=== PATIENT | female | born 1940 | race Caucasian/White ===

== ENCOUNTER 2019-02-12 13:53 | Emergency (ER) | payer OTHER, MEDICARE ==
--- OUTSIDE RECORDS SUMMARY | 2019-02-12 13:55 | XMS REPORT | Clinical Summary ---
:1940 Author Organization [facility] Address [address] [place] [address] Care Team Providers Name Role Phone Asked, No Pcp Primary Care Provider Unavailable Allergies Active Allergy Reactions Severity Noted Date Comments No Known Drug Allergies 05/28/2016 Medications Medication Sig Dispensed Refills Start Date End Date Status donepezil (ARICEPT) 10 MG tablet 0 05/26/2016 Active DULoxetine (CYMBALTA) 20 MG capsule 0 03/20/2016 Active famotidine (PEPCID) 40 MG tablet 0 06/08/2016 Active ipratropium (ATROVENT) 0.06 % nasal 0 05/25/2016 Active spray levETIRAcetam (KEPPRA) 500 MG tablet 0 05/21/2016 Active NAMENDA XR 14 mg capsule,sprinkle,ER 0 03/20/2016 Active 24hr BYSTOLIC 5 mg tablet 0 06/08/2016 Active VESICARE 5 mg tablet 0 06/12/2016 Active warfarin (COUMADIN) 5 MG tablet 0 06/12/2016 Active Active Problems Not on file Family History Medical History Relation Name Comments Other Father Malignant tumor of lung Other Mother Malignant tumor of kidney Relation Name Status Comments Father (Age 72) Mother (Age 68) Social History Tobacco Use Types Packs/Day Years Used Date Never Smoker Alcohol Use Drinks/Week oz/Week Comments No Sex Assigned at Date Recorded Not on file Job Start Date Occupation Industry Not on file Not on file Not on file Travel History Travel Start Travel End No recent travel history available. Last Filed Vital Signs Not on file Plan of Treatment Health Maintenance Due Date Last Done Comments SHINGLES VACCINES (#1) 1988 65+ PNEUMOCOCCAL VACCINE (1 of 2 - PCV13) 2003 PNEUMOCOCCAL POLYSACCHARIDE VACCINE AGE 65 AND OVER 2003 INFLUENZA VACCINE 06/08/2019 Results Not on fileafter 02/11/2018 Insurance Payer Benefit Plan / Group Subscriber ID Type Phone Address MEDICARE MEDICARE PART A AND B xxxxxxxxxx Medicare [place], [place] Advance Directives Patient has advance care planning documents on file. For more information, please contact:[place] [address]
[2019-02-12] MEDS ORDERED: LIDOCAINE 1% MPF 30 ML VIAL ONE (14:59)
[2019-02-12] MEDS ORDERED: HYDROCODONE/APAP 5/325 MG TAB ONE (15:41)
[2019-02-12] MEDS ORDERED: AMOX/K CLAV 875 MG TAB ONE (15:42)
--- NOTE | 2019-02-12 16:18 | RAD REPORT ---
EXAM DESCRIPTION: RAD - Knee Right 3 View - 02/12/2019 4:12 pm CLINICAL HISTORY: PAIN COMPARISON: No comparisons FINDINGS: No fracture or dislocation seen. Mild medial compartment space narrowing is evident. No si gnificant joint effusion seen.
--- NOTE | 2019-02-12 16:23 | RAD REPORT ---
EXAM DESCRIPTION: CT - CTFB CLINICAL HISTORY: Facial pain;Deformity Trauma, pain COMPARISON: No comparisons TECHNIQUE: Axial 2 mm thick images of the face were obtained with sagittal and coronal reconstructio n images. All CT scans are performed using dose optimization technique as appropriate and may include automated exposure control or mA/KV adjustment according to patient size. FINDINGS: Subtle nasal bone deformity is seen with adjacent soft tissue swelling, suspicious for non displaced nasal bone fracture.No additional facial bone fracture is seen.The mandible is intact. Smal l right frontal scalp hematoma. Focal small hematoma seen in the right zygoma region. The globes and orbital contents are grossly unremarkable.The paranasal sinuses and mastoids are clear . IMPRESSION: Mild nasal bone fracture.
--- NOTE | 2019-02-12 16:30 | RAD REPORT ---
EXAM DESCRIPTION: CT - CTHCSPWOC - 02/12/2019 4:03 pm CLINICAL HISTORY: Trauma, head and neck injury. PAIN COMPARISON: No comparisons TECHNIQUE: Axial 5 mm thick images of the head were obtained. Axial 2 mm thick images of the cervical spine were obtained with sagittal and coronal reconstruction images generated and reviewed. All CT scans are performed using dose optimization technique as appropriate and may include automated exposure control or mA/KV adjustment according to patient size. FINDINGS: CT HEAD WITHOUT CONTRAST: No acute hemorrhage, hydrocephalus or extra-axial collection is identified.Mild generalized brain atr ophy is present with mild periventricular and deep white matter chronic microvascular ischemic change s.No areas of brain edema or midline shift. The paranasal sinuses and mastoids are clear.The calvarium is intact. CT CERVICAL SPINE WITHOUT CONTRAST: No fracture or subluxation.Moderate lower cervical degenerative changes are present. 2-3 mm anterolis thesis C4 on 5.No prevertebral soft tissues swelling is identified. IMPRESSION: No acute intracranial or cervical spine findings. Moderate lower cervical degenerative changes.
--- NOTE | 2019-02-12 16:39 | EDPHYS ---
Physician Documentation [facility] Name: Radha Lugo Age: 78 yrs Sex: Female : 1940 Arrival Date: 02/12/2019 Time: 13:53 Bed 5 Private MD: ED Physician Jay Sewell HPI: 02/12 14:50 This 78 yrs old Female presents to ER via Wheelchair with complaints of Fall lisa Injury. 14:50 Details of fall: The patient fell from an upright position, while walking. Onset: The lisa symptoms/episode began/occurred just prior to arrival. Associated injuries: The patient sustained injury to the head, neck injury, face. Severity of symptoms: At their worst the symptoms were mild, moderate, in the emergency department the symptoms are unchanged. 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 - Social history:: Smoking status: Patient/guardian denies using tobacco. - Immunization history: Last tetanus immunization: - up to date. - Ebola Screening: : No symptoms or risks identified at this time. ROS: 14:50 Constitutional: Negative for fever, chills, and weight loss, Eyes: Negative for injury, lisa pain, redness, and discharge, Neck: Negative for injury, pain, and swelling, Cardiovascular: Negative for chest pain, palpitations, and edema, Respiratory: Negative for shortness of breath, cough, wheezing, and pleuritic chest pain, Abdomen/GI: Negative for abdominal pain, nausea, vomiting, diarrhea, and constipation, Back: Negative for injury and pain, : Negative for injury, bleeding, discharge, and swelling, Skin: Negative for injury, rash, and discoloration, Neuro: Negative for headache, weakness, numbness, tingling, and seizure, Psych: Negative for depression, anxiety, suicide ideation, homicidal ideation, and hallucinations, Allergy/Immunology: Negative for hives, rash, and allergies, Endocrine: Negative for neck swelling, polydipsia, polyuria, polyphagia, and marked weight changes, Hematologic/Lymphatic: Negative for swollen nodes, abnormal bleeding, and unusual bruising. 14:50 ENT: Positive for nasal discharge, nose bleed. 14:50 MS/extremity: Positive for decreased range of motion, pain, tenderness, of the right hand and left hand. Exam: 14:50 Constitutional: This is a well developed, well nourished patient who is awake, alert, lisa and in no acute distress. Eyes: Pupils equal round and reactive to light, extra-ocular motions intact. Lids and lashes normal. Conjunctiva and sclera are non-icteric and not injected. Cornea within normal limits. Periorbital areas with no swelling, redness, or edema. Neck: Trachea midline, no thyromegaly or masses palpated, and no cervical lymphadenopathy. Supple, full range of motion without nuchal rigidity, or vertebral point tenderness. No Meningismus. Chest/axilla: Normal chest wall appearance and motion. Nontender with no deformity. No lesions are appreciated. Cardiovascular: Regular rate and rhythm with a normal S1 and S2. No gallops, murmurs, or rubs. Normal PMI, no JVD. No pulse deficits. Respiratory: Lungs have equal breath sounds bilaterally, clear to auscultation and percussion. No rales, rhonchi or wheezes noted. No increased work of breathing, no retractions or nasal flaring. Abdomen/GI: Soft, non-tender, with normal bowel sounds. No distension or tympany. No guarding or rebound. No evidence of tenderness throughout. Back: No spinal tenderness. No costovertebral tenderness. Full range of motion. Neuro: Awake and alert, GCS 15, oriented to person, place, time, and situation. Cranial nerves II-XII grossly intact. Motor strength 5/5 in all extremities. Sensory grossly intact. Cerebellar exam normal. Normal gait. Psych: Awake, alert, with orientation to person, place and time. Behavior, mood, and affect are within normal limits. 14:50 Head/face: Noted is contusion, deformity, erythema, swelling, tenderness, that is mild, of the top of head, right eye, nose and left eye. 14:50 Musculoskeletal/extremity: ROM: no acute changes, intact in all extremities, Circulation is intact in all extremities. Pulses: Sensation intact. Compartment Syndrome exam of affected extremity: is normal. DVT Exam: no swelling, negative Homans' sign noted on exam, no appreciated bluish discoloration, no erythema, no increased warmth, pain, tenderness. Vital Signs: 14:03 BP 144 / 69; Pulse 57; Resp 16; Temp 98.3; Pulse Ox 98% on R/A; Weight 63.5 kg; Height la1 5 ft. 7 in. (170.18 cm); Pain 0/10; 15:30 BP 142 / 60; Pulse 62; Resp 16; Temp 98.3; Pulse Ox 97% on R/A; sg 16:30 BP 155 / 82; Pulse 66; Resp 16; Temp 98.3; Pulse Ox 99% on R/A; sg 14:03 Body Mass Index 21.93 (63.50 kg, 170.18 cm) la1 Jessie Coma Score: 14:15 Eye Response: spontaneous(4). Verbal Response: oriented(5). Motor Response: obeys sg commands(6). Total: 15. 15:30 Eye Response: spontaneous(4). Verbal Response: oriented(5). Motor Response: obeys sg commands(6). Total: 15. Trauma Score (Adult): 14:15 Eye Response: spontaneous(1); Verbal Response: oriented(1); Motor Response: obeys sg commands(2); Systolic BP: > 89 mm Hg(4); Respiratory Rate: 10 to 29 per min(4); Jessie Score: 15; Trauma Score: 12 15:30 Eye Response: spontaneous(1); Verbal Response: oriented(1); Motor Response: obeys sg commands(2); Systolic BP: > 89 mm Hg(4); Respiratory Rate: 10 to 29 per min(4); [place] Score: 15; Trauma Score: 12 Laceration: 14:50 Wound Repair of 1.5cm ( 0.6in ) subcutaneous laceration to nose and mouth. Irregularly lisa shaped.. Skin/tissue flap noted.. Distal neuro/vascular/tendon intact. Anesthesia: Local anesthetic administered with 5 mls of 1% lidocaine, Local anesthetic administered with 5 mls of 1% lidocaine, Local anesthetic administered with 5 mls of 1% lidocaine. Wound prep: Simple cleansing with betadine by in. Skin closed with 3 5-0 Prolene using interrupted sutures and sterile technique. Dressed with Neosporin. Patient tolerated well. MDM: 14:15 Patient medically screened. [facility] 14:50 Data reviewed: vital signs, nurses notes, radiologic studies, CT scan, plain films. [facility] 02/12 14:50 Order name: CT Head C Spine; Complete Time: 16:35 [facility] 02/12 14:50 Order name: CT Facial Bones W/O Con; Complete Time: 16:35 [facility] 02/12 14:54 Order name: Knee Right 3 View XRAY; Complete Time: 16:35 [facility] 02/12 14:50 Order name: Chromic, Sutures; Complete Time: 15:09 [facility] 02/12 14:50 Order name: Prolene, Sutures; Complete Time: 15:09 [facility] 02/12 14:50 Order name: Dressing - Wound; Complete Time: 15:09 [facility] 02/12 14:50 Order name: Gloves, Sterile; Complete Time: 15:09 [facility] 02/12 14:50 Order name: Setup Suture Tray; Complete Time: 15:09 [facility] 02/12 14:55 Order name: Ice pack; Complete Time: 15:06 [facility] Administered Medications: 15:07 Drug: Lidocaine-Epinephrine -1%: (1:100,000) 5 ml {Note: medication administered by .} Volume: 20 ml; Route: Infiltration; 16:30 Drug: Augmentin 875 mg Route: PO; 16:30 Drug: [place] 5 mg-325 mg 1 tabs Route: PO; Disposition: 02/12/19 16:38 Discharged to Home. Impression: Fall due to bumping against object, Fracture of nasal bones, Laceration without foreign body of unspecified part of head - upper lip, through - through, Fracture of tooth (traumatic) - incomplete. - Condition is Stable. - Discharge Instructions: Laceration Care, Adult, Mouth Laceration, Facial Laceration, Laceration Care, Adult, [id number], Facial Laceration, [id number]. - Prescriptions for Augmentin 875- 125 mg Oral Tablet - take 1 tablet by ORAL route every 12 hours for 7 days; 14 tablet. Tylenol- Codeine #3 300-30 mg Oral Tablet - take 1 tablet by ORAL route every 4 hours As needed; 26 tablet. - Medication Reconciliation Form, Thank You Letter, Antibiotic Education, Prescription Opioid Use form. - Follow up: Private Physician; When: 2 - 3 days; Reason: Recheck today's complaints, Continuance of care, Re-evaluation by your physician. Follow up: Monse Giordano; When: 2 - 3 days; Reason: Recheck today's complaints, Re-evaluation by your physician. Follow up: Alfredo Zapien; When: 1 - 2 days; Reason: Recheck today's complaints, Re-evaluation by your physician. - Problem is new. - Symptoms have improved. Signatures: Dispatcher [employer] EDEfrain Perkins RN RN sg Anderson, Corey, MD MD cha Williams, Irene, RN RN iw Attema, Lee, RN RN la1 Corrections: (The following items were deleted from the chart) 14:11 13:59 PMHx: Seizures; la1 la1 17:01 16:38 02/12/2019 16:38 Discharged to Home. Impression: Fall due to bumping against iw object; Fracture of nasal bones; Laceration without foreign body of unspecified part of head - upper lip, through - through; Fracture of tooth (traumatic) - incomplete. Condition is Stable. Discharge Instructions: Laceration Care, Adult, Mouth Laceration, Facial Laceration, Laceration Care, Adult, [id number], Facial Laceration, [id number]. Prescriptions for Augmentin 875-125 mg Oral Tablet - take 1 tablet by ORAL route every 12 hours for 7 days; 14 tablet, Tylenol-Codeine #3 300-30 mg Oral Tablet - take 1 tablet by ORAL route every 4 hours As needed; 26 tablet. and Forms are Medication Reconciliation Form, Thank You Letter, Antibiotic Education, Prescription Opioid Use. Follow up: Private Physician; When: 2 - 3 days; Reason: Recheck today's complaints, Continuance of care, Re-evaluation by your physician. Follow up: Monse Giordano; When: 2 - 3 days; Reason: Recheck today's complaints, Re-evaluation by your physician. Follow up: Alfredo Zapien; When: 1 - 2 days; Reason: Recheck today's complaints, Re-evaluation by your physician. Problem is new. Symptoms have improved. lisa
--- NOTE | 2019-02-12 16:39 | ER ---
Nurse's Notes [facility] Name: Radha Lugo Age: 78 yrs Sex: Female : 1940 Arrival Date: 02/12/2019 Time: 13:53 Bed 5 Private MD: Diagnosis: Fall due to bumping against object;Fracture of nasal bones;Laceration without foreign body of unspecified part of head-upper lip, through - through;Fracture of tooth (traumatic)-incomplete Presentation: 02/12 13:59 Presenting complaint: Patient states: I tripped from from standing between to vehicles la1 and hit my nose and upper lip somewhere on the way down, pt denies LOC but was sitting on the ground for 30-45 minutes after the fall which was unwitnessed, pt does take on baby aspirin per day. Transition of care: patient was not received from another setting of care. Onset of symptoms was February 12, 2019. Risk Assessment: Do you want to hurt yourself or someone else? Patient reports no desire to harm self or others. Initial Sepsis Screen: Does the patient meet any 2 criteria? No. Patient's initial sepsis screen is negative. Does the patient have a suspected source of infection? No. Patient's initial sepsis screen is negative. Care prior to arrival: None. 13:59 Method Of Arrival: Wheelchair la1 13:59 Acuity: GRACIE 3 la1 13:59 Mechanism of Injury: Fall from standing position. Trauma event details: Injury occurred la1 in the [facility]. Triage Assessment: 14:20 General: Appears in no apparent distress. well groomed, well developed, well nourished, sg Behavior is calm, cooperative, appropriate for age. Pain: Complains of pain in upper lip and nose. 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 - Social history:: Smoking status: Patient/guardian denies using tobacco. - Immunization history: Last tetanus immunization: - up to date. - Ebola Screening: : No symptoms or risks identified at this time. Screenin:42 Abuse screen: Denies threats or abuse. Denies injuries from another. Nutritional sg screening: No deficits noted. Tuberculosis screening: No symptoms or risk factors identified. Never had TB. Fall Risk Fall in past 12 months (25 points). Secondary diagnosis (15 points) seizures, dementia, No IV (0 pts). Ambulatory Aid- None/Bed Rest/Nurse Assist (0 pts). Gait- Normal/Bed Rest/Wheelchair (0 pts) Mental Status- Oriented to own ability (0 pts). Total Luevano Fall Scale indicates Low Risk Score (25-44 pts). Fall prevention measures have been instituted. Side Rails Up X 2 Family Present and informed to notify staff if they need to leave bedside As available Patient and Family Educated on Fall Prevention Program and strategies. Primary Survey: 14:10 NO uncontrolled hemorrhage observed. A: The patient is alert. Airway: patent, No sg supplemental oxygen in use on arrival. Oral cavity: blood present, Trauma to teeth noted: upper right lateral incisor (#7) and upper right central Incisor (#8). Breathing/Chest: Respiratory pattern: regular, Respiratory effort: spontaneous, unlabored, Breath sounds: clear, bilaterally. Chest inspection: symmetrical rise and fall of the chest. Circulation: Cardiac rhythm: sinus rhythm Heart tones present. Pulses: palpable right radial artery and left radial artery. Skin color: pale, Skin temperature: warm. Disability Alert. Exposure/Environment: All clothing and personal items were removed. Forensic evidence collection is not deemed to be indicated at this time. Items placed in patient belonging bag. There is no evidence of uncontrolled external bleeding. Obvious injury(ies) are noted at this time: dental fracture noted to upper teeth A warming method has been applied: A warm blanket has been provided to the patient. 14:15 Reassessment Airway Airway Oxygen Non-rebreather Oral cavity Teeth trauma noted Other sg bleeding noted to inside of mouth Breathing/Chest Respiratory pattern Regular Respiratory effort Spontaneous Breath sounds Clear Chest inspection Symmetrical Circulation Heart tones Present Pulses Palpable Color Pale Temperature Warm Disability Alert. Assessment: 14:15 General: Appears in no apparent distress. uncomfortable, slender, well groomed, well sg developed, well nourished, Behavior is calm, cooperative, appropriate for age. Pain: Complains of pain in nose, upper raffy border and upper lip Quality of pain is described as tender, throbbing. Neuro: Level of Consciousness is awake, alert, obeys commands, Oriented to person, time, situation, Scout are equal bilaterally Moves all extremities. Gait is steady, Speech is normal, Facial symmetry appears normal. Cardiovascular: Capillary refill is brisk in bilateral fingers Patient's skin is warm and dry. Chest pain is denied. Respiratory: Airway is patent Respiratory effort is even, unlabored, Respiratory pattern is regular, symmetrical, Denies cough, shortness of breath labored breathing. GI: No signs and/or symptoms were reported involving the gastrointestinal system. : No signs and/or symptoms were reported regarding the genitourinary system. EENT: Nares with bleeding noted bilaterally Oral mucosa is moist. Derm: Skin is pink, warm \T\ dry. Musculoskeletal: Swelling present in nose, upper raffy border and upper lip. 14:55 Reassessment: Patient appears in no apparent distress at this time. pt family at sg bedside assisting pt by holding icepack provided to forehead, bleeding controlled at this time. 15:30 Reassessment: Patient appears in no apparent distress at this time. Patient and/or sg family updated on plan of care and expected duration. Pain level reassessed. pt family remains at bedside at this time, srx2, bed in low and locked position, awaiting radiology orders, pt and pt family updated on POC, will continue to monitor. 16:31 Reassessment: Patient appears in no apparent distress at this time. Patient and/or iw family updated on plan of care and expected duration. Pain level reassessed. Patient is alert, oriented x 3, equal unlabored respirations, skin warm/dry/pink. steri-strips applied to palms, family at bedside, awaiting radiology results. Vital Signs: 14:03 BP 144 / 69; Pulse 57; Resp 16; Temp 98.3; Pulse Ox 98% on R/A; Weight 63.5 kg; Height la1 5 ft. 7 in. (170.18 cm); Pain 0/10; 15:30 BP 142 / 60; Pulse 62; Resp 16; Temp 98.3; Pulse Ox 97% on R/A; sg 16:30 BP 155 / 82; Pulse 66; Resp 16; Temp 98.3; Pulse Ox 99% on R/A; sg 14:03 Body Mass Index 21.93 (63.50 kg, 170.18 cm) la1 Jessie Coma Score: 14:15 Eye Response: spontaneous(4). Verbal Response: oriented(5). Motor Response: obeys sg commands(6). Total: 15. 15:30 Eye Response: spontaneous(4). Verbal Response: oriented(5). Motor Response: obeys sg commands(6). Total: 15. Trauma Score (Adult): 14:15 Eye Response: spontaneous(1); Verbal Response: oriented(1); Motor Response: obeys sg commands(2); Systolic BP: > 89 mm Hg(4); Respiratory Rate: 10 to 29 per min(4); Jessie Score: 15; Trauma Score: 12 15:30 Eye Response: spontaneous(1); Verbal Response: oriented(1); Motor Response: obeys sg commands(2); Systolic BP: > 89 mm Hg(4); Respiratory Rate: 10 to 29 per min(4); Jessie Score: 15; Trauma Score: 12 ED Course: 13:53 Patient arrived in ED. as 14:01 Triage completed. la1 14:01 Arm band placed on left wrist. la1 14:10 Patient maintains SpO2 saturation greater than 95% on room air. Thermoregulation: warm sg blanket given to patient. 14:15 Jay Sewell MD is Attending Physician. lisa 14:35 Patient has correct armband on for positive identification. Bed in low position. Call sg light in reach. Side rails up X2. Pulse ox on. NIBP on. Warm blanket given. Head of bed elevated. 14:45 Assist provider with laceration repair on upper lip that was 2.5 cm. or less using sg sutures. Set up tray. Performed by Jay Sewell MD. Wound care: to laceration located on upper lip, inside. 14:45 sutures to outter aspect of upper lip and sutures to inside of upper lip by .sg 14:54 Efrain Hackett, RN is Primary Nurse. sg 15:[address] via stretcher. mw3 16:03 CT Head C Spine In Process Unspecified. EDMS 16:13 Knee Right 3 View XRAY In Process Unspecified. EDMS 16:16 CT Facial Bones W/O Con In Process Unspecified. EDMS 16:38 Monse Giordano MD is Referral Physician. [facility] 16:38 Alfredo Zapien DDS is Referral Physician. [facility] 16:52 Patient did not have IV access during this emergency room visit. sg Administered Medications: 15:07 Drug: Lidocaine-Epinephrine -1%: (1:100,000) 5 ml {Note: medication administered by sg .} Volume: 20 ml; Route: Infiltration; 16:30 Drug: Augmentin 875 mg Route: PO; sg 16:30 Drug: Vowinckel 5 mg-325 mg 1 tabs Route: PO; sg Intake: 14:15 PO: 0ml; Total: 0ml. sg Output: 14:15 Urine: 0ml; Total: 0ml. sg Outcome: 16:38 Discharge ordered by . [facility] 16:55 Discharged to home via wheelchair, with family. sg 16:55 Condition: stable 16:55 Discharge instructions given to patient, Instructed on discharge instructions, follow up and referral plans. medication usage, safety practices, wound care, Demonstrated understanding of instructions, follow-up care, medications, wound care, Prescriptions given X 2. 17:00 Patient's length of stay in the Emergency Department was greater than 2 hours. sg 17:01 Patient left the ED. iw Signatures: Dispatcher [employer] EDEfrain Perkins RN RN sg Anderson, Corey, MD MD cha Martinez, Amelia as Val Harvey RN RN Seun Cottrell RN RN [facility] Radha Giordano 3 Vidhi Gale mw3 Corrections: (The following items were deleted from the chart) 14:03 13:59 Acuity: GRACIE 2 la1 la1 14:11 13:59 PMHx: Seizures; la1 la1 18:23 16:30 BP 155 / 82; Pulse 66bpm; Resp 16bpm; Pulse Ox 99% RA; dh3
[2019-02-12 17:43] VITALS: TEMP 98.3
[2019-02-12 17:46] VITALS: BP 155/82; O2SAT 99
== END 2019-02-12 17:01 | disposition home or self-care (01) ==
LOC: ER 13:53
PROC: 0CQ0XZZ Repair Upper Lip, External Approach (ICD-10-PCS; principal; 2019-02-12)
DX: S02.2XXA Fracture of nasal bones, initial encounter for closed fracture (principal); S01.511A Laceration without foreign body of lip, initial encounter; S02.5XXA Fracture of tooth (traumatic), initial encounter for closed fracture; W18.00XA Striking against unspecified object with subsequent fall, initial encounter; Y93.01 Activity, walking, marching and hiking; F03.90 Unspecified dementia, unspecified severity, without behavioral disturbance, psychotic disturbance, mood disturbance, and anxiety; F32.9 Major depressive disorder, single episode, unspecified; G40.909 Epilepsy, unspecified, not intractable, without status epilepticus
CPT/HCPCS: 70450; 70486; 72125; 76377; 99285

== ENCOUNTER 2019-06-17 08:25 | Emergency (ER) | payer OTHER, MEDICARE ==
--- OUTSIDE RECORDS SUMMARY | 2019-06-17 08:27 | XMS REPORT | Clinical Summary ---
:1940 Author Organization [facility] Address [address] [place] [address] Care Team Providers Name Role Phone Asked, [...] VACCINE (1 of 2 - PCV13) 2003 INFLUENZA VACCINE 06/08/2019 Results Not on fileafter 06/16/2018 Insurance Payer Benefit Plan / Subscriber ID Effective Dates Phone Address Type Group MEDICARE MEDICARE PART A xxxxxxxxxx 2003-Present [place], [place] Medicare AND B Advance Directives Patient has advance care planning documents on file. For more information, please contact:Kody Guerrier[address] [place] [address]
[2019-06-17] MEDS ORDERED: NA CHLORIDE 0.9% 1,000 ML ONE (08:55)
[2019-06-17 09:14] LABS: Absolute Lymphocytes (CBC) 0.7 K/uL (0.7-4.9); Basophils % 1.4 % (0-1.3); Hematocrit 40.2 % (36.0-45.0); Lymphocytes % 12.4 % (15.3-44.8); MPV 7.3 fL (7.6-11.3); RBC Red Blood Cell Count 4.21 M/uL (3.86-4.86)
[2019-06-17 09:15] LABS: Protime INR 0.97
[2019-06-17 09:39] LABS: ALT/SGPT 16 U/L (12-78); AST/SGOT 15 U/L (15-37); Albumin 3.5 g/dL (3.4-5.0); Alkaline Phosphatase 99 U/L (45-117); BUN Blood Urea Nitrogen 20 mg/dL (7-18); Bicarbonate 26 mmol/L (21-32); Bilirubin Direct 0.2 mg/dL (0-0.2); Bilirubin Total 0.6 mg/dL (0.2-1.0); Glucose Level 92 mg/dL (74-106); Lipase 97 U/L (73-393); Magnesium 2.1 mg/dL (1.8-2.4); NT PRO-BNP 113 pg/mL (<450); Potassium 4.2 mmol/L (3.5-5.1); Sodium Level 136 mmol/L (136-145); Troponin (Emerg Dept Use Only) < 0.02 ng/mL (0.0-0.045)
[2019-06-17 09:42] LABS: Urine Blood NEGATIVE (NEG); Urine Glucose NEGATIVE (NEG); Urine Protein NEGATIVE (NEG); Urine pH 5.5 (5.0-7.0)
--- NOTE | 2019-06-17 10:15 | RAD REPORT ---
EXAM DESCRIPTION: CT - Chest For Pe Angio - 06/17/2019 10:08 am CLINICAL HISTORY: Chest pain. CHEST PAIN COMPARISON: No comparisons TECHNIQUE: CT angiogram of the pulmonary arteries was performed with MIP. All CT scans are performed using dose optimization technique as appropriate and may include automated exposure control or mA/KV adjustment according to patient size. FINDINGS: No evidence of pulmonary thromboembolism. No acute aortic finding demonstrated. Mild interstitial pulmonary edema is seen. Small left pleural effusion with atelectasis in left lung base. No concerning bony finding. IMPRESSION: No evidence of pulmonary thromboembolism. Mild CHF.
--- NOTE | 2019-06-17 10:50 | ER ---
Nurse's Notes [facility] Name: Radha Lugo Age: 78 yrs Sex: Female : 1940 Arrival Date: 06/17/2019 Time: 08:27 Bed 8 Private MD: Beatrice Cano C Diagnosis: Chest pain on breathing;Chest pain, unspecified;Pleurisy Presentation: 06/17 08:32 Presenting complaint: Patient states: left-sided chest pain that began "months ago" and aa5 it's non-radiating and intermittent. Pt denies recent illness, denies cough, denies nausea/vomiting. 08:32 Transition of care: patient was not received from another setting of care. Onset of aa5 symptoms was 2018. Risk Assessment: Do you want to hurt yourself or someone else? Patient reports no desire to harm self or others. Initial Sepsis Screen: Does the patient meet any 2 criteria? No. Patient's initial sepsis screen is negative. Does the patient have a suspected source of infection? No. Patient's initial sepsis screen is negative. Care prior to arrival: None. 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 - Social history:: Smoking status: Patient/guardian denies using tobacco. - Ebola Screening: : No symptoms or risks identified at this time. - Family history:: not pertinent. Screenin:15 Abuse screen: No signs of abuse noted. Nutritional screening: No deficits noted. aa5 Tuberculosis screening: No symptoms or risk factors identified. Fall Risk Secondary diagnosis (15 points) seizures, dementia, IV access (20 points). Mental Status- Overestimates/Forgets Limitations (15 pts.). Total Luevano Fall Scale indicates High Risk Score (45 or more points). Fall prevention measures have been instituted. Side Rails Up X 2 Placed Close to Nursing Station. Assessment: 08:34 General: Appears comfortable, Behavior is calm, cooperative. Pain: Complains of pain in aa5 anterior aspect of left upper chest and left breast Pain does not radiate. Pain currently is 0 out of 10 on a pain scale. Quality of pain is described as aching, dull, Pain began "months ago" Is intermittent, episodic, lasting a few minutes. Neuro: Level of Consciousness is awake, alert, obeys commands, Oriented to person, place, time, situation. Cardiovascular: Heart tones S1 S2 present Rhythm is sinus rhythm. Respiratory: Airway is patent Respiratory effort is even, unlabored, Respiratory pattern is regular, symmetrical, Breath sounds are clear bilaterally. Denies cough, shortness of breath. GI: Abdomen is round non-distended, Bowel sounds present X 4 quads. Abd is soft and non tender X 4 quads. Patient currently denies nausea, vomiting. : No signs and/or symptoms were reported regarding the genitourinary system. EENT: No signs and/or symptoms were reported regarding the EENT system. Derm: Skin is pink, warm \\T\\ dry. Musculoskeletal: Range of motion: intact in all extremities. 09:20 Reassessment: Patient is alert, oriented x 3, equal unlabored respirations, skin aa5 warm/dry/pink. Patient denies pain at this time. Pt assisted to restroom via wheelchair, pt tolerated well. . 09:56 Reassessment: Patient is alert, oriented x 3, equal unlabored respirations, skin aa5 warm/dry/pink. Patient denies pain at this time. Pt to CT via stretcher. . 10:25 Reassessment: Patient is alert, oriented x 3, equal unlabored respirations, skin aa5 warm/dry/pink. Patient denies pain at this time. 10:25 Reassessment: Pt back from CT . Cardiovascular: Rhythm is sinus bradycardia. aa5 11:55 Reassessment: Patient is alert, oriented x 3, equal unlabored respirations, skin aa5 warm/dry/pink. Patient denies pain at this time. Vital Signs: 08:33 BP 130 / 66; Pulse 62; Resp 16 S; Temp 98.4(O); Pulse Ox 96% on R/A; Weight 63.5 kg aa5 (R); Height 5 ft. 7 in. (170.18 cm) (R); Pain 0/10; 09:30 BP 126 / 70; Pulse 60; Resp 16 S; Pulse Ox 97% on R/A; aa5 10:25 BP 134 / 60; Pulse 55; Resp 16 S; Temp 98.1(O); Pulse Ox 99% on R/A; Pain 0/10; aa5 11:30 BP 128 / 70; Pulse 62; Resp 16 S; Pulse Ox 97% on R/A; Pain 0/10; aa5 08:33 Body Mass Index 21.93 (63.50 kg, 170.18 cm) aa5 ED Course: 08:27 Patient arrived in ED. as 08:27 Beatrice Cano MD is Private Physician. as 08:32 Alivia Dale, RN is Primary Nurse. aa5 08:32 Arm band placed on Patient placed in an exam room, on a stretcher. aa5 08:32 Patient has correct armband on for positive identification. Placed in gown. Bed in low aa5 position. Call light in reach. Side rails up X2. tetryl dissolver operator on. Pulse ox on. NIBP on. 08:37 EKG done, by ED staff, reviewed by Jay Sewell MD. aa5 08:44 Triage completed. aa5 08:47 Jay Sewell MD is Attending Physician. lisa 09:06 Initial lab(s) drawn, by hi, sent to lab. Inserted saline lock: 22 gauge in right jb1 antecubital area, using aseptic technique. Blood collected. 09:15 XRAY Chest (1 view) In Process Unspecified. EDMS 09:15 No provider procedures requiring assistance completed. Patient maintains SpO2 aa5 saturation greater than 95% on room air. 09:20 Urine collected: clean catch specimen, clear. aa5 09:22 Radiology exam delayed due to lab results not completed at this time. (BUN/Creatinine). mw3 09:40 First set of blood cultures drawn by ED staff. aa5 09:55 Second set of blood cultures drawn by hi. aa5 10:07 CT Chest For PE Angio In Process Unspecified. EDMS 10:49 Beatrice Cano MD is Hospitalizing Provider. lisa 11:11 Beatrice Cano MD is Referral Physician. lisa 11:55 IV discontinued, intact, bleeding controlled, No redness/swelling at site. Pressure aa5 dressing applied. Administered Medications: 09:23 Drug: NS 0.9% 1000 ml Route: IV; Rate: 125 ml/hr; Site: right antecubital; aa5 11:55 Follow up: IV Status: Order to discontinue infusion aa5 10:25 Drug: Rocephin 1 grams Route: IV; Rate: per protocol; Site: right antecubital; aa5 11:09 Not Given (Pt reports she took a baby aspirin this morning, MD was notified): Aspirin aa5 Chewable Tablet 81 mg PO once Outcome: 10:51 Decision to Hospitalize by Provider. lisa 11:12 Discharge ordered by . lisa 11:55 Discharged to home via wheelchair, with family. aa5 11:55 Condition: stable 11:55 Discharge instructions given to patient, family, Instructed on discharge instructions, follow up and referral plans. medication usage, Demonstrated understanding of instructions, follow-up care, medications, Prescriptions given X 1. 11:59 Patient left the ED. aa5 Signatures: Dispatcher [employer] EDFelix Mackay jb1 Jay Sewell MD MD cha Martinez, Amelia as Calderon, Audri, NATALEE RN aa5 Vidhi Gale mw3 Corrections: (The following items were deleted from the chart) 08:42 08:39 EKG done, by ED staff, reviewed by Jay Sewell MD aa5 aa5
--- NOTE | 2019-06-17 10:51 | EDPHYS ---
Physician Documentation [facility] Name: Radha Lugo Age: 78 yrs Sex: Female : 1940 Arrival Date: 06/17/2019 Time: 08:27 Bed 8 Private MD: Beatrice Cano C ED Physician Jay Sewell HPI: 06/17 09:19 This 78 yrs old Female presents to ER via Wheelchair with complaints of Chest lisa Pain. 09:19 The patient or guardian reports chest pain that is located primarily in the substernal lisa area. Onset: 3 week(s) ago. The pain does not radiate. Associated signs and symptoms: The patient has no apparent associated signs or symptoms. The chest pain is described as sharp. Duration: The patient or guardian reports multiple episodes, that are intermittent. Modifying factors: The symptoms are alleviated by remaining still, the symptoms are aggravated by deep breath, palpation of area. Severity of pain: At its worst the pain was moderate in the emergency department the pain is unchanged. The patient has not experienced similar symptoms in the past. 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 - Social history:: Smoking status: Patient/guardian denies using tobacco. - Ebola Screening: : No symptoms or risks identified at this time. - Family history:: not pertinent. ROS: 09:19 Constitutional: Negative for fever, chills, and weight loss, Eyes: Negative for injury, lisa pain, redness, and discharge, ENT: Negative for injury, pain, and discharge, Neck: Negative for injury, pain, and swelling, Cardiovascular: Negative for chest pain, palpitations, and edema, Abdomen/GI: Negative for abdominal pain, nausea, vomiting, diarrhea, and constipation, Back: Negative for injury and pain, : Negative for injury, bleeding, discharge, and swelling, MS/Extremity: Negative for injury and deformity, Skin: Negative for injury, rash, and discoloration, Neuro: Negative for headache, weakness, numbness, tingling, and seizure, Psych: Negative for depression, anxiety, suicide ideation, homicidal ideation, and hallucinations, Allergy/Immunology: Negative for hives, rash, and allergies, Endocrine: Negative for neck swelling, polydipsia, polyuria, polyphagia, and marked weight changes, Hematologic/Lymphatic: Negative for swollen nodes, abnormal bleeding, and unusual bruising. 09:19 Respiratory: Positive for pleurisy, shortness of breath, at rest. Exam: 09:19 Constitutional: This is a well developed, well nourished patient who is awake, alert, lisa and in no acute distress. Head/Face: Normocephalic, atraumatic. Eyes: Pupils equal round and reactive to light, extra-ocular motions intact. Lids and lashes normal. Conjunctiva and sclera are non-icteric and not injected. Cornea within normal limits. Periorbital areas with no swelling, redness, or edema. ENT: Nares patent. No nasal discharge, no septal abnormalities noted. Tympanic membranes are normal and external auditory canals are clear. Oropharynx with no redness, swelling, or masses, exudates, or evidence of obstruction, uvula midline. Mucous membranes moist. Neck: Trachea midline, no thyromegaly or masses palpated, and no cervical lymphadenopathy. Supple, full range of motion without nuchal rigidity, or vertebral point tenderness. No Meningismus. Chest/axilla: Normal chest wall appearance and motion. Nontender with no deformity. No lesions are appreciated. Cardiovascular: Regular rate and rhythm with a normal S1 and S2. No gallops, murmurs, or rubs. Normal PMI, no JVD. No pulse deficits. Respiratory: Lungs have equal breath sounds bilaterally, clear to auscultation and percussion. No rales, rhonchi or wheezes noted. No increased work of breathing, no retractions or nasal flaring. Abdomen/GI: Soft, non-tender, with normal bowel sounds. No distension or tympany. No guarding or rebound. No evidence of tenderness throughout. Back: No spinal tenderness. No costovertebral tenderness. Full range of motion. Skin: Warm, dry with normal turgor. Normal color with no rashes, no lesions, and no evidence of cellulitis. MS/ Extremity: Pulses equal, no cyanosis. Neurovascular intact. Full, normal range of motion. Neuro: Awake and alert, GCS 15, oriented to person, place, time, and situation. Cranial nerves II-XII grossly intact. Motor strength 5/5 in all extremities. Sensory grossly intact. Cerebellar exam normal. Normal gait. Psych: Awake, alert, with orientation to person, place and time. Behavior, mood, and affect are within normal limits. 09:19 Skin: Appearance: Color: normal in color, Temperature: normal temperature, Moisture: normal moisture, petechiae, not noted, ecchymosis, not noted, flushing, not noted, diaphoresis is not appreciated. Vital Signs: 08:33 BP 130 / 66; Pulse 62; Resp 16 S; Temp 98.4(O); Pulse Ox 96% on R/A; Weight 63.5 kg aa5 (R); Height 5 ft. 7 in. (170.18 cm) (R); Pain 0/10; 09:30 BP 126 / 70; Pulse 60; Resp 16 S; Pulse Ox 97% on R/A; aa5 10:25 BP 134 / 60; Pulse 55; Resp 16 S; Temp 98.1(O); Pulse Ox 99% on R/A; Pain 0/10; aa5 11:30 BP 128 / 70; Pulse 62; Resp 16 S; Pulse Ox 97% on R/A; Pain 0/10; aa5 08:33 Body Mass Index 21.93 (63.50 kg, 170.18 cm) 5 MDM: 08:47 Patient medically screened. [facility] 09:23 Data reviewed: vital signs, nurses notes, lab test result(s), EKG, radiologic studies, [facility] CT scan, plain films. 06/17 08:46 Order name: Basic Metabolic Panel; Complete Time: 10:09 [facility] 06/17 08:46 Order name: CBC with Diff; Complete Time: 09:26 [facility] 06/17 08:46 Order name: LFT's; Complete Time: 10:09 [facility] 06/17 08:46 Order name: Magnesium; Complete Time: 10:09 [facility] 06/17 08:46 Order name: NT PRO-BNP; Complete Time: 10:09 [facility] 06/17 08:46 Order name: PT-INR; Complete Time: 09:26 [facility] 06/17 08:46 Order name: Troponin (emerg Dept Use Only); Complete Time: 10:09 [facility] 06/17 08:46 Order name: XRAY Chest (1 view) [facility] 06/17 08:46 Order name: Lipase; Complete Time: 10:09 [facility] 06/17 09:17 Order name: CT Chest For PE Angio; Complete Time: 10:34 [facility] 06/17 09:24 Order name: Urine Dipstick--Ancillary (enter results) em1 06/17 09:27 Order name: Blood Culture Adult (2) [facility] 06/17 09:27 Order name: Urine Culture [facility] 06/17 08:46 Order name: EKG; Complete Time: 08:50 [facility] 06/17 08:46 Order name: Cardiac monitoring; Complete Time: 08:48 [facility] 06/17 08:46 Order name: EKG - Nurse/Tech; Complete Time: 08:48 [facility] 06/17 08:46 Order name: IV Saline Lock; Complete Time: 09:07 [facility] 06/17 08:46 Order name: Labs collected and sent; Complete Time: 09:07 [facility] 06/17 08:46 Order name: O2 Per Protocol; Complete Time: 08:48 [facility] 06/17 08:46 Order name: O2 Sat Monitoring; Complete Time: 08:48 [facility] 06/17 08:46 Order name: Urine Dipstick-Ancillary (obtain specimen); Complete Time: 09:23 [facility] 06/17 11:04 Order name: CONS Physician Consult EDMS Administered Medications: 09:23 Drug: NS 0.9% 1000 ml Route: IV; Rate: 125 ml/hr; Site: right antecubital; aa5 11:55 Follow up: IV Status: Order to discontinue infusion aa5 10:25 Drug: Rocephin 1 grams Route: IV; Rate: per protocol; Site: right antecubital; aa5 11:09 Not Given (Pt reports she took a baby aspirin this morning, was notified): Aspirin aa5 Chewable Tablet 81 mg PO once Disposition: 06/17/19 11:12 Discharged to Home. Impression: Chest pain on breathing, Chest pain, unspecified, Pleurisy. - Condition is Stable. - Discharge Instructions: Nonspecific Chest Pain, Pleurisy, Nonspecific Chest Pain, [id number], Pleurisy, [id number]. - Prescriptions for Motrin IB 200 mg Oral Tablet - take 1 tablet by ORAL route every 8 hours As needed as needed with food; 21 tablet. - Medication Reconciliation Form, Thank You Letter, Antibiotic Education, Prescription Opioid Use form. - Follow up: Beatrice Cano MD; When: 1 - 2 days; Reason: Recheck today's complaints, Continuance of care, Re-evaluation by your physician. - Problem is new. - Symptoms have improved. Signatures: Dispatcher [employer] EDJay Nguyen MD MD cha Calderon, Audri, RN RN aa5 Corrections: (The following items were deleted from the chart) 11:11 10:51 Hospitalization Ordered by A Rachael GOMES for Observation. Preliminary diagnosis is lisa Other chest pain; Unspecified combined systolic (congestive) and diastolic (congestive) heart failure; Pleurisy. Bed requested for Telemetry/MedSurg (observation). Status is Observation. Condition is Fair. Problem is new. Symptoms have improved. UTI on Admission? No. lisa 11:59 11:12 06/17/2019 11:12 Discharged to Home. Impression: Chest pain on breathing; Chest aa5 pain, unspecified; Pleurisy. Condition is Stable. Forms are Medication Reconciliation Form, Thank You Letter, Antibiotic Education, Prescription Opioid Use. Follow up: Beatrice Cano; When: 1 - 2 days; Reason: Recheck today's complaints, Continuance of care, Re-evaluation by your physician. Problem is new. Symptoms have improved. lisa
[2019-06-17] MEDS ORDERED: ASPIRIN 81 MG CHEWABLE TABLET ONE (10:54)
--- NOTE | 2019-06-17 11:58 | RAD REPORT ---
EXAM DESCRIPTION: RAD - Chest Single View - 06/17/2019 9:15 am CLINICAL HISTORY: CHEST PAIN Chest pain. COMPARISON: CHEST SINGLE VIEW dated 02/28/2008 FINDINGS: Portable technique limits examination quality. The lungs are grossly clear. The heart is upper limit of normal in size. No displaced fractures.
[2019-06-17 12:07] VITALS: TEMP 98.1
[2019-06-17 12:09] VITALS: BP 128/70; O2SAT 97
--- NOTE | 2019-06-18 10:24 | EKG ---
Test Date: 2019-06-17 Test Time: 08:42:02 Technology And Engineering Teacher: LUDMILA MEASUREMENT RESULTS: Intervals: Rate: 62 IA: 154 QRSD: 82 QT: 428 QTc: 434 Tully: P: 32 IA: 154 QRS: 30 T: 66 INTERPRETIVE STATEMENTS: Normal sinus rhythm Normal ECG Compared to ECG 02/28/2008 10:34:21 No significant changes Electronically Signed On 06-18-19 10:23:51 CDT by Simone Araujo
== END 2019-06-17 11:59 | disposition home or self-care (01) ==
LOC: ER 08:25 → UNDOADMOB 10:51 → ERHOLD 10:51
DX: R07.1 Chest pain on breathing (principal); R09.1 Pleurisy; F03.90 Unspecified dementia, unspecified severity, without behavioral disturbance, psychotic disturbance, mood disturbance, and anxiety; F32.9 Major depressive disorder, single episode, unspecified; R56.9 Unspecified convulsions; Z79.82 Long term (current) use of aspirin; Z79.899 Other long term (current) drug therapy
CPT/HCPCS: 96361; 93005; 87040 ×2; 87088; 85025; 87086; 80048; 36415; 83735; 85610; 80076; 81003; 84484; 83690; 83880; 71275; 71045; 96374; 99285; Q9967; J7030

== ENCOUNTER 2021-08-31 09:43 | Inpatient (IN) | payer OTHER, MEDICARE ==
--- NOTE | 2021-08-31 11:10 | RAD REPORT ---
EXAM DESCRIPTION: CT - Head Brain Wo Cont - 08/31/2021 10:47 am CLINICAL HISTORY: Tremor Headache, drowsiness COMPARISON: Facial Bones W/ Mpr dated 02/12/2019; HEAD BRAIN W O CONTRAST dated 02/28/2008 TECHNIQUE: All CT scans are performed using dose optimization technique as appropriate and may inclu de automated exposure control or mA/KV adjustment according to patient size. FINDINGS: No intracranial hemorrhage, hydrocephalus or extra-axial fluid collection.Moderate general ized brain atrophy is present with moderate periventricular and deep white matter chronic microvascul ar ischemic changes.No areas of brain edema or evidence of midline shift. The paranasal sinuses and mastoids are clear. The calvarium is intact. IMPRESSION: No acute intracranial abnormality.
--- NOTE | 2021-08-31 11:38 | EDPHYS ---
Physician Documentation [facility] Name: Radha Lugo Age: 81 yrs Sex: Female : 1940 Arrival Date: 08/31/2021 Time: 09:44 Bed 20 Private MD: Beatrice Cano C ED Physician Jay Sewell HPI: 08/31 10:17 This 81 yrs old Female presents to ER via Wheelchair with complaints of pm1 muscle spasms and tremor. 10:17 The patient's problem is reported as Tremors. Onset: The symptoms/episode pm1 began/occurred Patient with onset of tremors multiple years ago that is treated with Keppra but worse the past 4 days. Duration: lasting a few seconds, Multiple occurrences causing tremor of all extremities. Context: Possible contributing factors include: Unknown but possibly related due to recent move to assisted care living. Possible noncompliance with Keppra. The symptoms are alleviated by nothing. The symptoms are aggravated by nothing. Associated signs and symptoms: The patient has no apparent associated signs or symptoms, Pertinent negatives: abdominal pain, headache, numbness, tingling, weakness. Severity of symptoms: in the emergency department the symptoms are unchanged Pain is currently a 0 / 10. The patient has not experienced similar symptoms in the past. The patient has not recently seen a physician. 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 - Social history:: Smoking status: Patient denies any tobacco usage or history of. ROS: 10:17 Constitutional: Negative for fever, chills, and weight loss, Cardiovascular: Negative pm1 for chest pain, palpitations, and edema, Respiratory: Negative for shortness of breath, cough, wheezing, and pleuritic chest pain, Abdomen/GI: Negative for abdominal pain, nausea, vomiting, diarrhea, and constipation, MS/Extremity: Negative for injury and deformity, Skin: Negative for injury, rash, and discoloration. 10:17 Neuro: Negative for headache, weakness, numbness, tingling, and seizure. 10:17 Neuro: Positive for tremor. 10:17 All other systems are negative. Exam: 11:16 Radiologist reports: No acute changes pm1 11:16 Constitutional: This is a well developed, well nourished patient who is awake, alert, and in no acute distress. Head/Face: Normocephalic, atraumatic. 11:16 Eyes: Exam is negative for acute changes, Extraocular movements: no acute changes, Corneas: are normal, no acute changes. 11:16 ENT: Mouth: no acute changes, Lips: normal, moist, dry, Oral mucosa: normal, pink and intact, moist. 11:16 Cardiovascular: Exam negative for acute changes, Rate: normal, Rhythm: regular, Pulses: no pulse deficits are appreciated. 11:16 Respiratory: Exam negative for acute changes, Breath sounds: are clear throughout. 11:16 Abdomen/GI: Inspection: abdomen appears normal, Palpation: abdomen is soft and non-tender, in all quadrants. 11:16 Musculoskeletal/extremity: Exam is negative for acute changes, ROM: intact in all extremities. 11:16 Skin: Exam negative for 11:16 Neuro: Exam negative for acute changes, Orientation: to person, place, situation, Memory: Cranial nerves: CN II- XII are normal as tested, Cerebellar function: normal finger to nose testing, Motor: is normal, moves all fours. Vital Signs: 10:00 BP 138 / 81; Pulse 78; Resp 18; Temp 97.6; Pulse Ox 100% on R/A; sl2 10:04 BP 150 / 73; Pulse 80; Resp 16; Temp 97.4(O); Pulse Ox 100% on R/A; Weight 63.96 kg; ll1 Height 5 ft. 6 in. (167.64 cm); 10:30 BP 144 / 71; Pulse 78; Resp 18; Temp 97.6; Pulse Ox 100% on R/A; sl2 11:30 BP 131 / 75; Pulse 85; Resp 18; Temp 97.4; Pulse Ox 99% on R/A; sl2 12:00 BP 168 / 68; Pulse 68; Resp 18; Temp 97.6; Pulse Ox 99% on R/A; sl2 13:00 BP 144 / 68; Pulse 76; Resp 18; Temp 97.8; Pulse Ox 98% ; sl2 14:00 BP 151 / 68; Pulse 68; Resp 18; Temp 97.9; Pulse Ox 99% on R/A; sl2 15:00 BP 148 / 72; Pulse 74; Resp 18; Temp 97.9; Pulse Ox 100% on R/A; sl2 10:04 Body Mass Index 22.76 (63.96 kg, 167.64 cm) ll1 MDM: 09:52 Patient medically screened. pm1 10:27 ED course: Informed by lab that Keppra lab result will occur the same day. Therefore pm1 will order lab test. 10:54 Physician consultation: Beatrice Cano MD regarding admission, patient's condition, Completed pm1 evaluating the patient in the ER. No further orders to ER work-up. Would like the patient admitted and consultation with Dr. Ma. 11:16 Data reviewed: vital signs. Data interpreted: Pulse oximetry: on room air is 100 %. pm1 Interpretation: normal. Counseling: I had a detailed discussion with the patient and/or guardian regarding: the historical points, exam findings, and any diagnostic results supporting the discharge/admit diagnosis, radiology results, the need for further work-up and treatment in the hospital. 08/31 10:17 Order name: CBC with Diff; Complete Time: 14:15 pm1 08/31 10:17 Order name: BMP; Complete Time: 15:10 pm1 08/31 10:17 Order name: LFT's; Complete Time: 15:10 pm1 08/31 10:27 Order name: KEPPRA (LEVETIRACETAM) EDVA 08/31 14:09 Order name: COVID-19/FLU A+B; Complete Time: 14:15 EDVA 08/31 10:17 Order name: CT Head Brain wo Cont; Complete Time: 11:16 pm1 08/31 10:17 Order name: IV Saline Lock; Complete Time: 12:17 pm1 08/31 10:17 Order name: EKG; Complete Time: 10:17 pm1 08/31 10:17 Order name: EKG - Nurse/Tech; Complete Time: 10:32 pm1 Administered Medications: No medications were administered Disposition: 09/01 10:37 Co-signature as Attending Physician, Jay Sewell MD I agree with the assessment and lisa plan of care. Disposition Summary: 08/31/21 11:37 Hospitalization Ordered Hospitalization Status: Observation pm1 Provider: Beatrice Cano pm1 Location: Telemetry/MedSurg (observation) pm1 Condition: Stable pm1 Problem: new pm1 Symptoms: have improved pm1 Bed/Room Type: Standard pm1 Room Assignment: 429(08/31/21 14:10) dw Diagnosis - Tremor, unspecified pm1 Forms: - Medication Reconciliation Form pm1 - SBAR form pm1 Signatures: Dispatcher [employer] EDMarisa Rubio RN RN Jay Sewell MD MD cha Marinas, Patrick, TOP AND SEAT COVER FITTER TOP AND SEAT COVER FITTER pm1 Lorena Gant RN RN 1 Jane Alva RN RN sl2 Corrections: (The following items were deleted from the chart) 08/31 13:27 10:55 CORONAVIRUS+MR.LAB.BRZ ordered. 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
--- NOTE | 2021-08-31 11:38 | ER ---
Nurse's Notes [facility] Name: Radha Lugo Age: 81 yrs Sex: Female : 1940 Arrival Date: 08/31/2021 Time: 09:44 Bed 20 Private MD: Beatrice Cano C Diagnosis: Tremor, unspecified Presentation: 08/31 10:04 Chief complaint: Patient states: Muscle spasms, tremors, weakness since Wednesday. Saw ll1 Dr. Cano , had blood work and UA done here at our facility. Went to her crate maker, they found yeast in her urine which they are treating with oral medication. Had a zoom meeting with neurologist Wednesday, was told to come to ED if she isn't getting better. Family states she seemed better yesterday, but symptoms returned today. No fever or cough. Coronavirus screen: Vaccine status: Patient reports receiving the 2nd dose of the covid vaccine. Client denies travel out of the [place] in the last 14 days. At this time, the client does not indicate any symptoms associated with coronavirus-19. Ebola Screen: Patient denies travel to an Ebola-affected area in the 21 days before illness onset. Initial Sepsis Screen: Does the patient meet any 2 criteria? No. Patient's initial sepsis screen is negative. Does the patient have a suspected source of infection? No. Patient's initial sepsis screen is negative. Risk Assessment: Do you want to hurt yourself or someone else? Patient reports no desire to harm self or others. Onset of symptoms was August 27, 2021. 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 - Social history:: Smoking status: Patient denies any tobacco usage or history of. Screenin:11 Abuse screen: Denies threats or abuse. Nutritional screening: No deficits noted. sl2 Tuberculosis screening: No symptoms or risk factors identified. Fall Risk Gait- Impaired (20 pts.). Mental Status- Oriented to own ability (0 pts). Assessment: 10:10 Reassessment: Patient AAO X 3, presents to ED for evaluation of worsening intentional sl2 tremors of bilateral upper extremities X 4 days. Patient is AAO X 3, denies any pain or physical discomfort. Patient states had tele visit with her neurologist 2 days ago - however symptoms are persistent thus came to ED for evaluation. No focal weakness noted, patient denies dizziness or visual impairment, speaks clearly and communicated effectively. 10:10 Pain: Denies pain. Neuro: Level of Consciousness is awake, alert, obeys commands, sl2 Oriented to person, place, time, situation, Appropriate for age Consumer Advocate are equal bilaterally intentional tremors of bilateral upper extremities . Moves all extremities. Speech is normal, Facial symmetry appears normal, Pupils are PERRLA, Intact. 10:11 General: Appears in no apparent distress. well groomed, well developed, Behavior is sl2 calm, cooperative, appropriate for age, Reports Intentional tremors to bilateral upper extremities, denies pain. 10:11 Pain: Denies pain. Neuro: Reports Intentional tremors to bilateral upper extremities . sl2 Denies weakness blurred vision dizziness. Cardiovascular: No deficits noted. Respiratory: No deficits noted. GI: No deficits noted. : No deficits noted. EENT: No deficits noted. Derm: No deficits noted. Musculoskeletal: No deficits noted. 15:23 Reassessment: Nursing report given to Robert ALBRIGHT for inpatient admission - patient being sl2 prepared for transport to the floor - room 429. Vital Signs: 10:00 BP 138 / 81; Pulse 78; Resp 18; Temp 97.6; Pulse Ox 100% on R/A; sl2 10:04 BP 150 / 73; Pulse 80; Resp 16; Temp 97.4(O); Pulse Ox 100% on R/A; Weight 63.96 kg; ll1 Height 5 ft. 6 in. (167.64 cm); 10:30 BP 144 / 71; Pulse 78; Resp 18; Temp 97.6; Pulse Ox 100% on R/A; sl2 11:30 BP 131 / 75; Pulse 85; Resp 18; Temp 97.4; Pulse Ox 99% on R/A; sl2 12:00 BP 168 / 68; Pulse 68; Resp 18; Temp 97.6; Pulse Ox 99% on R/A; sl2 13:00 BP 144 / 68; Pulse 76; Resp 18; Temp 97.8; Pulse Ox 98% ; sl2 14:00 BP 151 / 68; Pulse 68; Resp 18; Temp 97.9; Pulse Ox 99% on R/A; sl2 15:00 BP 148 / 72; Pulse 74; Resp 18; Temp 97.9; Pulse Ox 100% on R/A; sl2 10:04 Body Mass Index 22.76 (63.96 kg, 167.64 cm) 1 ED Course: 09:44 Patient arrived in ED. as 09:44 Beatrice Cano MD is Private Physician. as 09:49 [facility] pm1 09:50 Jay Sewell MD is Attending Physician. pm1 10:03 Arm band placed on Patient placed in an exam room, on a stretcher. ll1 10:08 Triage completed. ll1 10:11 Patient has correct armband on for positive identification. Fall risk band placed. sl2 Placed in gown. Bed in low position. Call light in reach. Side rails up X2. Adult w/ patient. 10:32 EKG done, by ED staff, reviewed by Anthony Bautista CREDIT INTERVIEWER. 3 10:38 Jane Alva, NATALEE is Primary Nurse. sl2 10:47 CT Head Brain wo Cont In Process Unspecified. EDMS 11:37 Beatrice Cano MD is Hospitalizing Provider. pm1 15:03 IV is patent, is intact. sl2 15:03 No provider procedures requiring assistance completed. intact. sl2 Administered Medications: No medications were administered Outcome: 11:37 Decision to Hospitalize by Provider. pm1 15:24 Admitted to Med/surg accompanied by tech, via stretcher, with chart, Report called to 2 NATALEE Jones 15:24 Condition: stable 15:24 Instructed on the need for admit, Demonstrated understanding of instructions. 15:44 Patient left the ED. iw Signatures: Dispatcher [employer] Nelly Estes as Val Harvey RN RN Anthony Bautista NP CREDIT INTERVIEWER 1 Radha Giordano 3 Lorena Gant RN RN 1 Jane Alva RN RN sl2 Corrections: (The following items were deleted from the chart) 13:27 12:48 CORONAVIRUS+ drawn and sent. 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
[2021-08-31 14:09] LABS: SARS-COV-2 RT PCR NEGATIVE (NEGATIVE)
[2021-08-31 14:10] LABS: Absolute Lymphocytes (CBC) 1.2 K/uL (0.7-4.9); Basophils % 0.8 % (0-1.3); Hematocrit 46.2 % (36.0-45.0); Lymphocytes % 22.8 % (15.3-44.8); MPV 7.5 fL (7.6-11.3); RBC Red Blood Cell Count 4.83 M/uL (3.86-4.86)
[2021-08-31 14:49] LABS: ALT/SGPT 26 U/L (12-78); AST/SGOT 20 U/L (15-37); Albumin 4.6 g/dL (3.4-5.0); Alkaline Phosphatase 145 U/L (45-117); BUN Blood Urea Nitrogen 10 mg/dL (7-18); Bicarbonate 29 mmol/L (21-32); Bilirubin Direct < 0.1 mg/dL (0-0.2); Bilirubin Total 0.4 mg/dL (0.2-1.0); Glucose Level 90 mg/dL (74-106); Protein, Total 9.1 g/dL (6.4-8.2); Sodium Level 138 mmol/L (136-145)
[2021-08-31] MEDS: NA CHLORIDE 0.9% 1,000 ML IV SCH (16:35)
--- NOTE | 2021-08-31 16:57 | HP ---
Date of Admission: 08/31/2021 Chief Complaint: Body jerking. History Of Present Illness: Ms. Lugo is a very pleasant 81-year-old female patient, who was diagn osed as having seizure about 7 to 8 years ago when she had similar presentation of her body jerking. She has been under care of Dr. Butterfield, neurologist in [place] and has been taking Keppra 500 mg 2 times a day since that time and soon as her Keppra was started 7 to 8 years ago, all this body jerk ing problem resolved. She has not had any problem up until last few days she started to have this pr oblem and it is increasingly getting worse. I saw her at office and when I saw her at office, it was very obvious that she was having very frequent jerking of her body where every minute to 2 minutes h er entire body would jerk and it would be just 1 single jerk or 2 to 3 jerks in a row. No loss of co nsciousness. No fall. No injury. No fever, chills, nausea, vomiting, diarrhea. No cough, no conge stion. She has been taking her medications regularly. She lives at [facility] and I did recommend to the patient's son to provide 24-hour care to avoid any risk of fall an d injury. I also did an outpatient CBC, chemistry profile, urinalysis, and all those results were un remarkable. There were no obvious signs of any infection. Her urine had some bacteria, but no leuko cytes, no nitrites and no white blood cells. It also had a small amount of yeast. I did communicate with the patient's son regarding all these results and recommended for the patient to go ahead and h ave a followup with neurologist and she actually did have a tele visit with neurologist on Wednesday, wh ich is day before yesterday and as I understand neurologist did not make any changes in her medicatio n and on Wednesday, Dr. Ann did another repeat urinalysis and started her on fluconazole 200 mg paras ly noticing the yeast in the initial urine specimen, but the repeat urinalysis prior to starting fluc onazole was absolutely normal and did not detect any yeast or any other abnormality. I do not believ e that the patient has any underlying obvious infection. I do not believe that yeast that was noted on her urinalysis 3 days ago has anything to do with her current presentation. Meanwhile yesterday, her symptoms were relatively better, but today it got worse again and the patient was brought into ER by family and I saw her in the emergency room. After she was evaluated, decision was made to admit her to hospital. Allergies: NO KNOWN ALLERGIES. Medications: Vitamin C 500 mg daily, aspirin 81 mg daily, vitamin D3 1000 units daily, donepezil 10 mg daily at bedtime, duloxetine 20 mg daily, Nexium 20 mg daily, levetiracetam 500 mg 2 times a day, memantine 28 mg daily, Bystolic 5 mg every other day, VESIcare 5 mg daily, vitamin B12 1 mg daily. Review of Systems: TRAFFIC WORKFORCE REPRESENTATIVE: As mentioned above. All other systems reviewed and negative. Past Medical History: Significant for prior history of seizure, TIA, dementia, hypertension, hyperli pidemia, paroxysmal atrial fibrillation, WPW syndrome, gastroesophageal reflux disease, vitamin B12 d eficiency, anxiety, depression. Past Surgical History: Cataract surgery, cardiac ablation for atrial fibrillation, cholecystectomy, appendectomy, and hysterectomy. Family History: Father , had lung cancer. Mother , had kidney cancer. Sister , had Alz heimer disease. Social History: Negative for smoking and alcohol use. Immunization History: Her first dose of COVID-19 vaccine was 11/22/2020, second dose 12/20/2020. Physical Examination: Vital Signs: When she first came into emergency room; temperature 97.6, pulse 78, respiratory rate 1 8, blood pressure 138/81, oxygen saturation 100%. General: Awake, alert, oriented, not in distress. HEENT: Head atraumatic, normocephalic. Conjunctivae nonerythematous. Sclerae white. Mouth, no thr ush or edema noted. Ears/Nose, no mass, lesion, discharge noted. Neck: Supple. No JVD, lymph nodes, bruit, thyromegaly noted. Lungs: Bilateral good equal air entry. Clear to auscultation. No rhonchi. No rales. Heart: Normal heart sounds, no murmur or gallop. Abdomen: Soft, bowel sounds normal. No guarding, rigidity, tenderness, mass, hepatosplenomegaly, dis tention, or bruit noted. Extremities: No leg edema. No calf tenderness. Skin: No rash, ulcer, cellulitis. Lymphatics: No lymph node enlargement in neck, supraclavicular, infraclavicular region. Neuro: No focal neurological deficit. Chest: Unremarkable. External Genitalia: Deferred. Rectal: Deferred. Laboratory Data: CAT scan of the head was negative for any acute intracranial changes. White count 5.3, hemoglobin 15.3, platelets 276. Sodium 138, potassium 4, chloride 101, bicarb 29, BUN 10, creat inine 1.11, glucose 90, calcium 10.4, total bilirubin 0.4, direct bilirubin less than 0.1, AST 20, AL T 26, alkaline phosphatase 145. Her total protein was 9.1, which was higher than normal and 3 days a go, her total protein was normal at 7.8. Her albumin is normal at 4.6. Globulin is high at 4.5 toda y and 3 days ago it was 4.0. Keppra level is pending. Influenza A, B and COVID-19 test negative. Impression: 1.Partial complex seizure. 2.Hypertension. 3.Hyperlipidemia. 4.Paroxysmal atrial fibrillation. 5.Senile dementia. 6.WPW syndrome. 7.Gastroesophageal reflux disease. 8.Vitamin B12 deficiency. 9.Anxiety. 10.Depression. Plan: We will go ahead and admit the patient to hospital for further evaluation and management of th is problem. The patient is appropriate for inpatient and is expected to spend [facility]. The patient has been taking her medications regularly for seizure and now having breakthrough pro blem, which is not able to be going to be managed on outpatient basis so we will go ahead and admit h er to hospital. She is at fall risk, so we will put her on fall precautions. We will give her some IV fluid, repeat blood work tomorrow morning, and we will consult Neurology, Dr. Ma and I did c all and discuss details with Dr. Ma. The patient's family has expressed desire to manager change her care from Dr. Butterfield to Dr. Ma and we will have Dr. Ma evaluate her tomorrow morn ing and then make any necessary recommendation and adjustment on her medication and continue to follo w up on outpatient basis. All the details were discussed with the patient's son and patient's daught er- in-law as well as I have also communicated all these details with Dr. Ma. MARY/MODL Voice ID: [id number]
[2021-08-31 17:41] LABS: Folic Acid, (Folate) > 20.0 ng/mL (3.1-17.5)
[2021-08-31] MEDS ORDERED: NEBIVOLOL HCL 5 MG TAB PO ONE (18:30)
[2021-08-31] MEDS: DONEPEZIL HCL 5 MG TAB PO SCH (20:02)
[2021-08-31] MEDS: MEMANTINE HCL 10 MG TABLET PO SCH (20:03)
[2021-08-31] MEDS: levETIRAcetam 500 MG TAB PO SCH (20:03)
[2021-09-01] MEDS: NA CHLORIDE 0.9% 1,000 ML IV SCH ×2 (05:29→15:34)
[2021-09-01] MEDS: PANTOPRAZOLE 40MG TABLET PO SCH (05:31)
[2021-09-01 06:12] LABS: Absolute Lymphocytes (CBC) 1.1 K/uL (0.7-4.9); Basophils % 1.2 % (0-1.3); Lymphocytes % 22.9 % (15.3-44.8); MPV 7.3 fL (7.6-11.3); RBC Red Blood Cell Count 4.24 M/uL (3.86-4.86)
[2021-09-01 06:34] LABS: Albumin 3.3 g/dL (3.4-5.0); Bilirubin Total 0.4 mg/dL (0.2-1.0); Potassium 3.9 mmol/L (3.5-5.1); Thyroid Stimulating Hormone 2.07 uIU/mL (0.360-3.740)
[2021-09-01] MEDS ORDERED: INFLUENZA VACCINE (for 6+ mo) 0.5 ML DOSE IMVAC ONE (08:00)
[2021-09-01] MEDS: SOLIFENACIN SUCCIN 5 MG TAB PO SCH (09:42)
[2021-09-01] MEDS: DULOXETINE 20 MG CAP PO SCH (09:42)
[2021-09-01] MEDS: MEMANTINE HCL 10 MG TABLET PO SCH ×2 (09:42→20:47)
[2021-09-01] MEDS: ENOXAPARIN 40 MG/0.4 ML SQ SCH (09:42)
[2021-09-01] MEDS: ASPIRIN EC 81 MG TAB PO SCH (09:42)
[2021-09-01] MEDS: NEBIVOLOL HCL 5 MG TAB PO SCH (09:42)
[2021-09-01] MEDS: levETIRAcetam 500 MG TAB PO SCH ×2 (09:42→20:47)
[2021-09-01] MEDS: CYANOCOBALAMIN 1,000 MCG TAB PO SCH (09:42)
[2021-09-01] MEDS: DONEPEZIL HCL 5 MG TAB PO SCH (20:46)
--- NOTE | 2021-09-01 22:49 | PN ---
Date of Progress Note: 09/01/2021 Subjective: The patient was seen this morning for followup. She was lying in bed, not in distress. She reported that all her frequent jerking problem has almost resolved and she is feeling much alexia r overnight. This morning when I saw her, I did not notice any jerking. Objective: HEENT: Unremarkable. Lungs: Clear to auscultation. Heart: Sounds normal. Abdomen: Soft. Bowel sounds normal. No guarding, rigidity, tenderness, or distention. Extremities: No leg edema. Laboratory Data: White count 5, hemoglobin 13.4, and platelets 228. Sodium 142, potassium 3.9, chlo ride 108, bicarb 27, BUN 0.88, glucose 95, and calcium 9.2. Liver function tests unremark able. Total protein 7, globulin 3.7, and albumin 3.3. TSH 2.07. Impression: 1.Partial complex seizure. 2.Hypertension. Plan: We will continue current medication. Continue follow with neurologist, Dr. Ma and the p atient will have EEG today. We will have Physical Therapy work with the patient and I will see her t omorrow for followup. Possible discharge to go home tomorrow depending on the EEG and Dr. Ma's recommendations. MARY/MODL Voice ID: [id number] Report ID: [id number]
--- NOTE | 2021-09-01 22:49 | CON ---
Consultation called by Dr. Cano because of possible seizures. History Of Present Illness: Ms. Lugo is an 81-year-old right-handed patient who is seen in [facility] for repeated episodes of brief sudden jerking movements of the arms. She was previously seen by neurologist, Dr. 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 In any event, the events began with her arms jerking so violently that she would throw objects. She was evaluated by Dr. Butterfield and the workup did not reveal epileptic seizures, but asterixis. In any event, she was started on Keppra up to 500 mg twice daily and the event subsided. Her son noted that after these medications was missed at one point, the episodes returned and when the medication was resumed that she actually did very well. He said about a month ago, her living situation changed and she became more socially isolated at [facility]. He denies any changes in administration of her medications and no missed doses. About a week ago, she started having more frequent episodes and at one point, she got it on the weekend and it subsided, but then they recurred again. The episodes are brief about 1-2 seconds. She does not have loss of consciousness or tonic-clonic activity that continuous. The episodes could be [id number]. At [facility] where head CT scan showed moderate small-vessel ischemic disease and her EEG identified a moderately slow background. It should be noted that she is also diagnosed with dementia and both findings are consistent with possible vascular dementia. She has been on antidepressant medications. Son believes this may be also a contributing factor. She was just hydrated in hospital and this afternoon actually on this mid day when I saw the patient, she was alert, interactive, following all commands and seemed very appropriate. Did not have any myoclonic jerks. He says that she did have some early this morning but none since. She has been continued on Keppra 500 mg twice daily, duloxetine 20 mg daily, Aricept 10 mg at bedtime and Namenda 10 mg twice daily along with Bystolic and aspirin and B12. Past Medical History: As indicated including transient ischemic attack, dyslipidemia, paroxysmal atrial fibrillation, GE reflux, anxiety and depression and Rttkr-Jimyhdyse-Akeqj syndrome. Past Surgical History: Cataract surgery, cardiac ablation, cholecystectomy, appendix, stroke, hysterectomy. Family History: Father had lung cancer. Mother, kidney cancer. Sister with Alzheimer disease. Social History: No alcohol, tobacco, or IV drug use. Currently in assisted living. She did have a COVID-19 vaccine 2 doses, last dose was in December 2020. Allergies: NO KNOWN DRUG ALLERGIES. Home Medications: Vitamin C 500 mg daily, aspirin 81 mg daily, vitamin D 1000 units daily, donepezil 10 mg at bedtime, fluoxetine 20 mg daily, Keppra 500 mg twice daily, Namenda 28 mg daily, Bystolic 5 mg daily, VESIcare 5 mg daily. Review of Systems: As noted above. Otherwise, no recent fevers, chills, nausea, vomiting. No arthralgias, myalgias. No rash, headache, weight change. No other positives as on the 10-point review of systems. Physical Examination: Vital Signs: 130/87, pulse 71, respiratory rate 16, temp 98.5, oxygen saturation 96%. Weight 141 pounds, height 5 feet 6 inches, BMI 22.8. General: Ms. Lugo is resting in bed. She is in no acute distress. HEENT: She is normocephalic, atraumatic. Sclerae anicteric. Oropharynx is moist and pink. Neck: Supple. Chest: Clear. Heart: Irregular. Abdomen: Soft. Extremities: Show no edema or cyanosis. Neurological: She is alert and oriented to situation and person and she follows all commands with no difficulty. Cranial nerves show no focal deficits on 2 through 12. Motor, she has no focal weakness in upper and lower extremities. Sensory exam, stocking-glove loss to light touch and temperature. Reflexes symmetric with no abnormalities. Coordination slow but intact in upper and lower extremities. With physical therapy today she ambulated, holding IV pole 200 feet with contact guard assistance. Seizure precautions were followed. Laboratory Studies: Complete blood count, differential essentially unremarkable. Chemistries, actually basic metabolic panel unremarkable. B12 slightly elevated at 1327, folate acid greater than 20. Her Keppra level is pending. COVID-19 test is negative. Influenza A negative. Head CT scan moderate small-vessel ischemic disease. An EEG diffusely slow, moderately slow background. Assessment: Ms. Lugo is an 81-year-old patient with multiple medical problems as indicated, who has perhaps episodes of myoclonic jerks, not clear that they are seizures. However, the events appear to respond exquisitely to Keppra. The most recent patch may be related to stress as the patient's living situation is change in addition to dehydration. At this point, we will wait on Keppra blood level and potentially adjust the medication to 750 mg twice daily. Plan: Once the hydration is complete, if she has more events tomorrow, increase Keppra to 750 mg twice daily. After discharge, she should have an ambulatory video EEG monitoring for event characterization to determine if these events are truly epileptic, nonepileptic, asterixis or myoclonus. Her son asked to enroll her in the virtual [employer] program run by Mr. Byron Moyer about 3 or 4 times weekly. She requires 24 hour care at this time. After discharge, he should call Dr. Ma's office for followup appointment and to get the video EEG study done. We will request medical records from Dr. Mariya Butterfield to continue care in my office. REBA/RICHARD Voice ID: [id number] Report ID: [id number] AGUSTIN
[2021-09-02] MEDS: PANTOPRAZOLE 40MG TABLET PO SCH (05:44)
[2021-09-02 06:32] VITALS: BMI 22.6
--- NOTE | 2021-09-02 07:35 | EEG ---
CHART: [id number] TEST ID#: 09/01/2021 DATE OF STUDY: THE EEG WAS RECORDED PORTABLE IN THE PATIENT'S ROOM ON A 17 CHANNEL MACHINE. ELECTRODES WERE APPLIED IN THE USUAL MANNER USING THE INTERNATIONAL 10-20 SYSTEM. THE WAKING BACKGROUND RHYTHM IN THIS RECORD CONSISTS OF FAIRLY WELL DEVELOPED AND FAIRLY WELL ORGANIZED WAVES OF 6-7 HZ., IN A WIDE DISTRIBUTION WHICH ATTENUATE NORMALLY WITH EYE OPENING. LOW-VOLTAGE 16-20 HZ ACTIVITY IS EXPRESSED IN THE FRONTAL REGIONS. MODERATE VOLTAGE 1.5-3 HZ ACTIVITY IS EXPRESSED INTERMITTENTLY IN THE FRONTAL REGIONS. THERE ARE NO FOCAL OR LATERALIZING FEATURES. NO EPILEPTIFORM ACTIVITY APPEARS. SLEEP DID NOT OCCUR. HYPERVENTILATION WAS NOT PERFORMED. PHOTIC STIMULATION PRODUCED NO DRIVING BILATERALLY. IMPRESSION: THIS IS A MILD TO MODERATELY ABNORMAL EEG DUE TO A MILD TO MODERATELY SLOW EEG. THIS IS A NON-SPECIFIC FINDING INDICATING THE PRESENCE OF A MODERATE DIFFUSE DISTURBANCE IN CEREBRAL FUNCTION. HOWEVER, NO EPILEPITFORM ACTIVITY WAS RECORDED.
[2021-09-02] MEDS: levETIRAcetam 500 MG TAB PO SCH ×2 (08:28→20:06)
[2021-09-02] MEDS: NEBIVOLOL HCL 5 MG TAB PO SCH (08:28)
[2021-09-02] MEDS: ASPIRIN EC 81 MG TAB PO SCH (08:28)
[2021-09-02] MEDS: ENOXAPARIN 40 MG/0.4 ML SQ SCH (08:28)
[2021-09-02] MEDS: SOLIFENACIN SUCCIN 5 MG TAB PO SCH (08:28)
[2021-09-02] MEDS: CYANOCOBALAMIN 1,000 MCG TAB PO SCH (08:28)
[2021-09-02] MEDS: DULOXETINE 20 MG CAP PO SCH (08:28)
[2021-09-02] MEDS: MEMANTINE HCL 10 MG TABLET PO SCH ×2 (08:28→20:06)
[2021-09-02] MEDS: NA CHLORIDE 0.9% 1,000 ML IV SCH ×2 (09:05→21:17)
[2021-09-02] MEDS: DONEPEZIL HCL 5 MG TAB PO SCH (20:05)
--- NOTE | 2021-09-03 01:22 | PN ---
Date of Progress Note: 09/02/2021 Subjective: Patient was seen this morning for followup. No new complaints or problems reported by h er. She was lying in bed, not in distress. She reported that she does have some intermittent jerkin g of her body that she presented with overnight and when I was in the room with her she had 2-3 episo carmen while I was in room. Objective: Vital Signs: Reviewed. HEENT: Unremarkable. Lungs: Clear to auscultation. HEART: Heart sounds normal. Abdomen: Soft, bowel sounds normal. No guarding, rigidity, tenderness, distention. Extremities: No leg edema. Impression: 1.Complex partial seizure. 2.Hypertension. Plan: We will go ahead and continue current medication. Dr. Ma has recommended to increase do se of Keppra from 500 mg 2 times a day to 750 mg 2 times a day and I did communicate details with him this morning and I have changed her Keppra dose accordingly. I did call patient's son, communicated with him, and our plan is to discharge her to go to [facility] as she is not able to return back to independent living or assisted living because she needs more help than what she can get with her prior level of arrangements, so my recommendation is for her to go to [facility] and son agrees and he will communicate with the [facility] regarding this and I have also requested Social Service to assist with placement. Possible discharge tomorrow depending on her condition. Meanwhile, we will have Physical Therapy continue to work with her. MARY/MODL Voice ID: [id number] Report ID: [id number]
[2021-09-03] MEDS: PANTOPRAZOLE 40MG TABLET PO SCH (05:52)
[2021-09-03] MEDS: ASPIRIN EC 81 MG TAB PO SCH (08:34)
[2021-09-03] MEDS: CYANOCOBALAMIN 1,000 MCG TAB PO SCH (08:34)
[2021-09-03] MEDS: levETIRAcetam 500 MG TAB PO SCH (08:34)
[2021-09-03] MEDS: ENOXAPARIN 40 MG/0.4 ML SQ SCH (08:34)
[2021-09-03] MEDS: MEMANTINE HCL 10 MG TABLET PO SCH (08:35)
[2021-09-03] MEDS: NEBIVOLOL HCL 5 MG TAB PO SCH (08:35)
[2021-09-03] MEDS: DULOXETINE 20 MG CAP PO SCH (08:35)
[2021-09-03] MEDS: SOLIFENACIN SUCCIN 5 MG TAB PO SCH (08:35)
[2021-09-03 08:41] VITALS: O2SAT 91
[2021-09-03 12:24] VITALS: BP 140/65; TEMP 98
--- NOTE | 2021-09-04 08:24 | DS ---
Date of Discharge: 09/03/2021 Disposition: Discharged to go to [facility]. Physical Examination: HEENT: Unremarkable. Lungs: Clear to auscultation. Heart: Sounds normal. Abdomen: Soft. Bowel sounds normal. No guarding, rigidity, tenderness, distention. Extremity: No leg edema. Neurology: No focal neurological deficit. Discharge Medications And Instructions: 1.Fall precautions. 2.Consult [facility] and [facility] at jail. 3.Follow up with Dr. Ma next week. Discharge Medications: 1.Levetiracetam 750 mg 2 times a day. 2.Bystolic 2.5 mg daily. 3.VESIcare 5 mg daily. 4.Stop fluconazole. 5.Stop Myrbetriq. 6.Aspirin 81 mg daily. 7.Vitamin D3 2000 units daily. 8.Cranberry tablets daily. 9.Vitamin B12 1000 mcg daily. 10.Donepezil 10 mg daily at bedtime. 11.Duloxetine 30 mg daily. 12.Nexium 20 mg daily. 13.Memantine 28 mg daily. 14.Multivitamin. Laboratory Data: EEG showed mild to moderately abnormal EEG due to [id number] early slow EEG, nonspecific finding indicating presence of moderate diffuse disturbance in cerebral function. No epi leptic form activity noted. Hospital Course: This is an 81-year-old pleasant female patient who presented with body jerking prob francisca. Please see dictated H and P for more information. After the patient was evaluated in the emerg ency room, she was admitted to the hospital and Neurology consultation was obtained from Dr. Ma . Her blood work was unremarkable. Keppra level was sent on the day of admission but till this date of discharge we do not have results available as this particular test was a send out test. Dr. Robert river was consulted from Neurology Service. Her CAT scan of the brain was negative for acute changes; initially, her body jerking movement completely resolved after IV fluid hydration, but then subseque ntly she did start to have those problems again, but not as bad as what it was when she first came in . Dr. Ma is planning to do outpatient video EEG on her and he will guide further treatment for this problem. The patient's family has decided to change neurologist from Dr. Butterfield to locally with Dr. Ma. The patient was living at [facility] and she is not able to go back there, she needs more assistance and was recommended to her to move into jail side at [facility]. Social Service was consulted to help make arrangements for that. [place], her condition is stable and Dr. Ma increased her dose of Keppra from 500 two times a day to 750 two times a day. All these details were discussed with the patient's son. Final Diagnoses: 1.Partial complex seizure. 2.Volume depletion. 3.Hypertension. 4.Senile dementia. MARY/MODL Voice ID: [id number] Report ID: [id number]
== END 2021-09-03 14:15 | DRG 101 ==
LOC: ER 09:43 → ERHOLD 13:46 → 4TH 15:24 → OBSVTOIN 15:39
PROVIDERS: ADMIT Internal Medicine; ATTEND Internal Medicine
DX: G40.209 Localization-related (focal) (partial) symptomatic epilepsy and epileptic syndromes with complex partial seizures, not intractable, without status epilepticus (principal); I10 Essential (primary) hypertension; K21.9 Gastro-esophageal reflux disease without esophagitis; F03.90 Unspecified dementia, unspecified severity, without behavioral disturbance, psychotic disturbance, mood disturbance, and anxiety; E53.8 Deficiency of other specified B group vitamins; F32.9 Major depressive disorder, single episode, unspecified; F41.9 Anxiety disorder, unspecified; I45.6 Pre-excitation syndrome; E86.9 Volume depletion, unspecified; I48.0 Paroxysmal atrial fibrillation; E78.5 Hyperlipidemia, unspecified; R27.8 Other lack of coordination; Z88.5 Allergy status to narcotic agent; Z79.82 Long term (current) use of aspirin; Z79.899 Other long term (current) drug therapy; Z86.73 Personal history of transient ischemic attack (TIA), and cerebral infarction without residual deficits; Z90.49 Acquired absence of other specified parts of digestive tract; Z90.710 Acquired absence of both cervix and uterus; Z20.822 Contact with and (suspected) exposure to COVID-19; Z23 Encounter for immunization
CPT/HCPCS: 0240U; 36415; 70450; 80048; 80053; 80076; 80177; 81003; 82607; 82746; 84443; 85025; 90471; 93005; 95816; 97116; 97161; 97530; 99285; G0378; J1650; J7030; Q2035; U0003